=== PATIENT | female | born 1980 | race Caucasian/White ===

== ENCOUNTER 2019-05-01 13:10 | Emergency (ER) | payer SELFPAY ==
[2019-05-01 13:13] VITALS: BP 134/89; PULSE 71; RESP 16; TEMP 36.5; O2SAT 100
--- NOTE | 2019-05-01 13:21 | ED.GENADUL_ITS ---
Discharge Plan Disposition Patient Disposition: HOME Condition: Good Discharge Details Chief Complaint: DentalOral Clinical Impression: Dental infection Primary Care Provider: Peyman Logan ED Provider: Christiane Gibson Home Meds and New Rx's Prescriptions: New amoxicillin-pot clavulanate [Augmentin] 875-125 mg tablet 1 tab PO BID Qty: 13 RF: 0 Continued albuterol sulfate [Proventil HFA] 6.7 GM HFA aerosol inhaler 2 puff Inhalation Q4H PRN PRNQty: 1 RF: 3 loratadine 10 MG tablet 10 mg PO DAILY Qty: 30 RF: 3 Advair HFA 8 GM HFA aerosol inhaler 2 puff Inhalation BID Qty: 1 RF: 3 ibuprofen 200 MG capsule 600 mg PO TID PRNRF: 0 Discharge Instructions Instructions: Dental Abscess (ED) Additional Instructions: Encourage water intake. Tylenol and/or ibuprofen as needed for discomfort. You may use 600 mg of ibuprofen every 6 hours, 1000 mg of Tylenol every 6 hours. Please take the Augmentin as prescribed. Even if symptoms improve, please take the entire course. If you develop swelling, fevers, increased pain or other new/worsening symptoms please seek care urgently once again. Otherwise, please keep your upcoming appointment with dentist. Referrals: Peyman Logan MD [Primary Care Provider] - Discharge Data Discharge Date/Time-TO BE ENTERED AT DEPARTURE: 05/01/19 13:50 Medical Decision Making Patient is a pleasant 38-year-old female presents today with chief complaint of left upper dental pain. She reports that she has had pain in this area for the past 3 days. She has contacted dentist and has appointment in May. She denies any fevers or chills. States that she noted a small bubble near the afflicted tooth. Was able to drain this at home and did have temporary relief of her discomfort. Has not noted a reaccumulation of this. Patient reports that she has had dental infections before and has taken amoxicillin for this. Patient recently had menses, reports that her is status post vasectomy. On exam, patient appears nontoxic. Vital signs within normal limits. No facial swelling, abscess noted. She is quite tender along the buccal side of the fractured #11 tooth. No area of fluctuance to suggest abscess. Patient does have poor dentition. No lingual discomfort. Remaining oropharynx and posterior oropharynx exam is normal. Extraocular movements are intact without any signs of discomfort. No lymphadenopathy palpable. At this point, her procedure at this point I am unable to identify need for drainage t she has responded well to Augmentin and states she is taking this for her dental infections historically. Patient has upcoming appointment with a dentist. Encourage hydration. Encourage good dental care. Advised Tylenol and ibuprofen as needed for discomfort and discussed appropriate dosing. She was given strict return precautions. All of her questions and concerns were addressed and she is in agreement with this plan. HPI General Mode of arrival: ambulatory . Date/Time Provider Initiated Documentation: 05/01/19 13:21 . Limitations to Documentation: no limitations . Information obtained by: patient and RN notes reviewed . History of Present Illness 38 year old F presents to the emergency department with the chief complaint of left upper dental pain, described as moderate, with intensity rated at 5. Quality is described as aching, and is localized to the mouth. Patient reports no radiation. Patient started experiencing this day(s) (3) and it has been constant. Eating improves symptom(s), No exacerbating factors reported . Patient notes no other symptoms.. Patient did receive the following treatments prior to arrival, NSAID Related Data Home Medications Medication Instructions Recorded Confirmed ibuprofen 600 mg PO TID PRN 08/08/16 05/01/19 Advair HFA 2 puff INHALATION BID #1 inhaler 07/16/17 05/01/19 albuterol sulfate [Proventil HFA] 2 puff INHALATION Q4H PRN PRN #1 07/16/17 05/01/19 inhaler loratadine 10 mg PO DAILY #30 tab-cap 07/16/17 05/01/19 amoxicillin-pot clavulanate 1 tab PO BID #13 tab 05/01/19 [Augmentin] Previous Rx's Medication Instructions Recorded Advair HFA 2 puff INHALATION BID #1 inhaler 07/16/17 loratadine 10 mg PO DAILY #30 tab-cap 07/16/17 amoxicillin-pot clavulanate 1 tab PO BID #13 tab 05/01/19 [Augmentin] Allergies Allergy/AdvReac Type Severity Reaction Status Date / Time cefaclor [Cefaclor] Allergy Severe Unverified 05/01/19 13:18 Cephalosporins Allergy Unknown Skin Rash Unverified 05/01/19 13:18 Penicillins Allergy Unknown RASH Unverified 05/01/19 13:18 lactose AdvReac Unknown GI Unverified 05/01/19 13:18 DISTRESS General Stated Complaint: DentalOral ARLET: 4 Review of Systems Constitutional Constitutional: Reports as per HPI, Denies chills, Denies fatigue, Denies fever(s), Denies headache(s) and Denies poor appetite Eyes Eyes: Denies change in vision and Denies irritation ENT Ears, Nose, Mouth, and Throat: Reports as per HPI, Reports dental pain, Denies dysphagia, Denies dizziness, Denies dry mouth, Denies ear discharge, Denies otalgia, Reports facial pain, Denies headache(s), Denies hoarseness, Denies lip swelling, Denies nasal congestion, Denies odynophagia and Denies sore throat Cardiovascular Cardiovascular: Reports as per HPI and Denies chest pain Respiratory Respiratory: Reports as per HPI and Denies cough Gastrointestinal Gastrointestinal: Reports as per HPI, Denies dysphagia, Denies nausea, Denies odynophagia and Denies vomiting Integumentary/Breasts Skin/Breast: Reports as per HPI, Denies erythema, Denies rash and Denies skin pain Neurologic Neurologic: Reports as per HPI, Denies dizziness and Denies headache(s) Endocrine Endocrine: Denies fatigue Allergic/Immunologic Allergic/Immunologic: Denies lip swelling PFSH Family History Mother Hyperlipidemia Father No problems noted. Brother Alcohol abuse Grandfather Neoplasm LIVER Grandfather No problems noted. Grandmother Alcohol abuse Grandmother No problems noted. Son No problems noted. Daughter Asthma Daughter Asthma Social History Smoking/Tobacco Use Status: Former Tobacco Use Alcohol Intake: never Drug use: Never Do you feel safe at home: Yes Do you feel safe in your relationship?: Yes Exam Const General: cooperative, healthy appearing, comfortable, no acute distress, well developed and well groomed Nutritional Appearance: average body habitus and well nourished Orientation: alert and awake [facility] Head: normal to inspection, normocephalic and atraumatic Ears: hearing grossly normal bilaterally, external ears normal and TM's normal bilaterally General nose exam: external nose normal and nares normal Face and sinus: normal facial exam, sinuses nontender and face symmetric Mouth: lip normal, tongue normal, oropharynx normal, moist mucous membranes, no trismus and No restricted motion Teeth and gingiva: abnormal dentition (poor dentition, decaying #11 tooth at area of discomfort), abnormal gingiva (swelling, erythema and tenderness along buccal side of affected tooth) and poor dentition Throat: posterior oropharynx normal, tonsils normal and uvula midline Eyes General: appearance normal, both eyes and all related structures Neck Neck: normal visual inspection, full ROM, no lymphadenopathy, supple and no anterior neck swelling Resp Effort & Inspection: normal respiratory effort, able to speak in complete sentences and no respiratory distress Auscultation: clear to auscultation bilaterally, no rales, no rhonchi and no wheezes Cardio Rate: regular rate Rhythm: regular rhythm Heart Sounds: S1 normal and S2 normal Skin General skin exam: no rashes or lesions noted Trauma: no lacerations or abrasions Neuro General: alert and awake Cognition: normal cognition Speech: speech normal Gait: normal gait Psych Appearance: grossly normal and well kempt Mental Status: mental status grossly normal Speech and Movement: speech and movement normal Course Vital Signs Vital signs: Vital Signs Temperature 36.5 C 05/01/19 13:13 Pulse 71 05/01/19 13:13 Respiratory Rate 16 05/01/19 13:13 Blood Pressure 134/89 05/01/19 13:13 Pulse Oximetry 100 05/01/19 13:13 Temperature 36.5 C 05/01/19 13:13 Temperature Source Temporal Artery Scan 05/01/19 13:13 Pulse 71 05/01/19 13:13 Respiratory Rate 16 05/01/19 13:13 Respiratory Effort Non-Labored 05/01/19 13:17 Blood Pressure 134/89 05/01/19 13:13 Blood Pressure Position Sitting 05/01/19 13:13 Pulse Oximetry 100 05/01/19 13:13 Oxygen Delivery Method Room Air 05/01/19 13:13 Oxygen Flow Rate 0 05/01/19 13:13 Pain Level 6 05/01/19 13:20
[2019-05-01] MEDS: Amoxicillin 875/Clav. 125 TAB PO (13:40)
== END 2019-05-01 13:50 | disposition home or self-care (01) ==
LOC: ER 14:11
PROVIDERS: Emergency Provider Physician Assistant; PCP Family Medicine
DX: K04.7 Periapical abscess without sinus (principal)
CPT/HCPCS: 99283

== ENCOUNTER 2019-05-21 14:50 | Emergency (ER) | payer SELFPAY ==
[2019-05-21 14:54] VITALS: BP 122/78; PULSE 111; RESP 18; TEMP 36.4; O2SAT 100
--- NOTE | 2019-05-21 15:02 | ED.GENADUL_ITS ---
Discharge Plan Disposition Patient Disposition: HOME Condition: Stable Discharge Details Chief Complaint: GenMedical Clinical Impression: Diarrhea, Viral syndrome, Hypokalemia, Right ear pain Primary Care Provider: Peyman Logan ED Provider: Darlene Wilson Home Meds and New Rx's Prescriptions: Continued albuterol sulfate [Proventil HFA] 6.7 GM HFA aerosol inhaler 2 puff Inhalation Q4H PRN PRNQty: 1 RF: 3 loratadine 10 MG tablet 10 mg PO DAILY Qty: 30 RF: 3 Advair HFA 8 GM HFA aerosol inhaler 2 puff Inhalation BID Qty: 1 RF: 3 ibuprofen 200 MG capsule 600 mg PO TID PRNRF: 0 Discharge Instructions Instructions: Hypokalemia (ED), Acute Diarrhea (ED), Earache (ED), Viral Syndrome (ED) Additional Instructions: Drink plenty of fluids and get plenty of rest. Alternate tylenol and motrin as needed and directed for pain. You can supplement potassium in your diet with foods such as bananas, spinach, tomatoes, garlic, kale, etc. You can also follow a bland diet for your diarrhea with bananas, rice, applesauce, toast. Your ear pain could likely be due to your excessive earwax in the setting of a viral infection. You can try [id number] hydrogen peroxide drops to soften the earwax to help with removal. If your ear pain persists or worsens, you can follow-up with your primary care doctor return to the emergency department for further evaluation. Follow-up with your primary care doctor in 1 week for reevaluation. Return to the emergency department anytime if he develop any significant worsening or new concerning symptoms. Discharge Data Discharge Date/Time-TO BE ENTERED AT DEPARTURE: 05/21/19 17:54 Discharge Physician: Darlene Wilson Medical Decision Making 1515 -- 39-year-old female presents with fatigue, headache, right ear pain, low back pain and leg cramps for the past few days. She also admits to multiple episodes of watery brown diarrhea daily for the past 2 weeks. She states she recently finished a prescription for Augmentin for a dental infection and 2 days into the antibiotic she developed mouth ulcers which resolved after 6 days. She states on last day of her antibiotic she developed watery brown diarrhea which has been continual since then. She denies any known fever but does admit to chills. She denies any sore throat, cough, chest pain, shortness of breath, abdominal pain or urinary symptoms. Right TM obscured by cerumen. Left TM normal to inspection. Normal oropharynx. Lungs clear. Abdomen soft and nontender. No CVA tenderness. No focal deficits. Moving all extremities. Discussed with patient that her mouth ulcers which have since resolved could have been due to yeast or thrush infection due to antibiotics. Discussed that diarrhea likely can be expected with antibiotics. Will place an IV, bolus IV fluids, screening labs, urinalysis, urine , Toradol to assess electrolytes. 1730 --labs reviewed. Potassium 3.2. Patient given oral potassium. Urinalysis negative for infection. Urine test negative. Patient feels much better and is requesting to go home. Do not suspect acute bacterial diarrheal illness as she denies any known fever, with normal white blood cell count and no report of bloody diarrhea. Patient declined irrigation of her ear stating she was nervous about this. Discussed that her right ear pain could be due to pressure from cerumen, an underlying viral process, or a bacterial ear infection. Through shared decision-making process, patient states she would rather hold on antibiotics for a possible ear infection at this time as she has had these adverse reactions with her recent antibiotics. She was advised to supplement potassium in her diet. She was advised to follow- up with her primary care doctor for evaluation within the next week and to return here with any concerns. Medical Records Medical records reviewed: Yes I reviewed the patient's medical records. Lab Data Lab results reviewed: Yes I reviewed the patient's lab results. Labs: Laboratory Tests Range/Units 05/21/19 05/21/19 05/21/19 15:40 15:40 16:23 WBC (4.4-10.8) k/cumm 6.13 RBC (4.00-5.20) m/cumm 4.80 Hgb (12.0-15.5) g/dL 13.4 Hct (36.0-46.0) % 39.6 MCV (80-95) fL 82.5 MCH (27.0-33.0) pg 27.9 MCHC (32.0-36.0) g/dL 33.8 RDW (11.7-14.6) % 13.5 Plt Count (130-400) x1000/uL 368 MPV (8.0-11.0) fL 9.4 Immature Gran % % 0.0 Neutrophils % 69.5 Lymphocytes % 19.6 Monocytes % 9.3 Eosinophils % 1.1 Basophils % 0.5 Absolute Neutrophils (1.2-6.7) k/cumm 4.26 Absolute Lymphocytes (1.2-3.4) k/cumm 1.20 Absolute Monocytes (0.11-0.7) k/cumm 0.57 Absolute Eosinophils (0.0-0.7) k/cumm 0.07 Absolute Basophils (0.0-0.2) k/cumm 0.03 Sodium (136-145) mmol/L 140 Potassium (3.5-5.1) mmol/L 3.2 L Chloride (98-107) mmol/L 103 Carbon Dioxide (21.0-32.0) mmol/L 26.5 Anion Gap (3-11) mmol/L 10.5 BUN (7-18) mg/dL 7 Creatinine (0.55-1.02) mg/dL 0.67 Estimated GFR/1.73 m2 (mL/min/1.73m2) >= 60.00 Glucose (74-106) mg/dL 94 Calcium (8.5-10.1) mg/dL 8.1 L Total Bilirubin (0.2-1.0) mg/dL 0.5 AST (15-37) U/L 18 ALT (14-59) U/L 16 Alkaline Phosphatase (46-116) U/L 58 Total Protein (6.4-8.2) g/dL 7.5 Albumin (3.4-5.0) g/dL 3.5 Urine Color (Yellow) Yellow Urine Clarity (Clear) Clear Urine pH (5-8) 7.0 Ur Specific [place] (1.005-1.025) 1.015 Urine Protein (Negative) mg/dL Negative Urine Ketones (Negative) mg/dL Negative Urine Blood (Negative) Trace-lysed H Urine Nitrite (Negative) Negative Urine Bilirubin (Negative) Negative Urine Urobilinogen (Up TO 0.2) EU/dL 0.2 Ur Leukocyte Esterase (Negative) Negative Urine RBC (0-2) HPF 0-2 Urine WBC (0-5) HPF 0-2 Ur Epithelial Cells (Negative) HPF Many Urine Crystals (Negative) HPF Negative Urine Bacteria (Negative) HPF Negative Urine Mucus (Negative) Negative Ur Culture Indicated? No Urine Glucose (Negative) mg/dL Negative HPI General Mode of arrival: ambulatory . Date/Time Provider Initiated Documentation: 05/21/19 14:52 . Limitations to Documentation: no limitations . Information obtained by: patient . History of Present Illness 39 year old F presents to the emergency department with the chief complaint of headache, fatigue, low back pain, chills, R ear pain today; diarrhea x wks, Patient started experiencing this day(s) and it has been constant. No relieving factors improve symptom(s), No exacerbating factors reported . Patient notes fever/chills, headaches and malaise; denies cough, diaphoresis, loss of appetite, nausea/vomiting, rash, seizure, shortness of breath, syncope and weakness. Patient did receive the following treatments prior to arrival, none Related Data Home Medications Medication Instructions Recorded Confirmed ibuprofen 600 mg PO TID PRN 08/08/16 05/21/19 Advair HFA 2 puff INHALATION BID #1 inhaler 07/16/17 05/21/19 albuterol sulfate [Proventil HFA] 2 puff INHALATION Q4H PRN PRN #1 07/16/17 05/21/19 inhaler loratadine 10 mg PO DAILY #30 tab-cap 07/16/17 05/21/19 Previous Rx's Medication Instructions Recorded Advair HFA 2 puff INHALATION BID #1 inhaler 07/16/17 loratadine 10 mg PO DAILY #30 tab-cap 07/16/17 Allergies Allergy/AdvReac Type Severity Reaction Status Date / Time cefaclor [Cefaclor] Allergy Severe Unverified 05/21/19 15:00 Cephalosporins Allergy Unknown Skin Rash Unverified 05/21/19 15:00 Penicillins Allergy Unknown RASH Unverified 05/21/19 15:00 lactose AdvReac Unknown GI Unverified 05/21/19 15:00 DISTRESS General Stated Complaint: GenMedical ARLET: 3 Review of Systems All systems reviewed & are unremarkable except as noted in HPI and below Constitutional Constitutional: Reports as per HPI, Reports chills, Reports fatigue, Denies fever(s) and Reports headache(s) Eyes Eyes: Denies blurry vision ENT Ears, Nose, Mouth, and Throat: Denies dizziness, Reports headache(s), Denies sore throat and Denies throat swelling Cardiovascular Cardiovascular: Denies chest pain and Denies dyspnea Respiratory Respiratory: Denies cough and Denies dyspnea Gastrointestinal Gastrointestinal: Denies abdominal pain, Reports diarrhea and Denies vomiting Genitourinary Genitourinary: Denies hematuria and Denies dysuria Musculoskeletal Musculoskeletal: Denies back pain and Denies numbness Integumentary/Breasts Skin/Breast: Denies lesions and Denies rash Neurologic Neurologic: Denies dizziness, Reports headache(s), Denies focal weakness and Denies numbness Endocrine Endocrine: Reports fatigue Allergic/Immunologic Allergic/Immunologic: Denies throat swelling [facility] Medical History Asthma (Inactive 01/14/12) Surgical History Hx of cholecystectomy (Chronic) Family History Mother Hyperlipidemia Father No problems noted. Brother Alcohol abuse Grandfather Neoplasm LIVER Grandfather No problems noted. Grandmother Alcohol abuse Grandmother No problems noted. Son No problems noted. Daughter Asthma Daughter Asthma Social History Smoking/Tobacco Use Status: Former Tobacco Use Alcohol Intake: never Drug use: Never Substance use type: does not use Do you feel safe at home: Yes Do you feel safe in your relationship?: Yes Exam Const General: cooperative and healthy appearing Orientation: alert and awake [facility] Head: normal to inspection Ears: hearing grossly normal bilaterally, external ears normal and other (L TM normal to inspection; R TM obscured by cerumen) General nose exam: external nose normal Face and sinus: normal facial exam Mouth: oral mucosae normal Teeth and gingiva: dentition normal Throat: posterior oropharynx normal Eyes General: appearance normal, both eyes and all related structures Eyelids: eyelids normal EOM: EOM intact bilaterally Neck Neck: normal visual inspection Lymphatic: no lymphadenopathy noted Chest Chest: normal inspection of the chest Resp Effort & Inspection: normal respiratory effort and able to speak in complete sentences Auscultation: clear to auscultation bilaterally Cardio Rate: regular rate Rhythm: regular rhythm GI Inspection: normal to inspection Palpation: soft, not firm, no guarding, no hepatosplenomegaly, no masses and nontender Auscultation: normal bowel sounds Back/Spine/Pelvis Back: no CVA tenderness Skin General skin exam: no rashes or lesions noted Neuro General: alert and awake Cognition: normal cognition Speech: speech normal Gait: normal gait Motor: muscle tone normal throughout Sensory Exam: no sensory deficits noted Extrem General: normal to inspection, full ROM and normal capillary refill Psych Appearance: grossly normal Mental Status: mental status grossly normal Speech and Movement: speech and movement normal Affect: normal affect Thought Process: normal Course Vital Signs Vital signs: Vital Signs Temperature 97.5 F L 05/21/19 14:54 Pulse 111 H 05/21/19 14:54 Respiratory Rate 18 05/21/19 14:54 Blood Pressure 122/78 05/21/19 14:54 Pulse Oximetry 100 05/21/19 14:54 Temperature 97.5 F L 05/21/19 14:54 Temperature Source Temporal Artery Scan 05/21/19 14:54 Pulse 111 H 05/21/19 14:54 Respiratory Rate 18 05/21/19 14:54 Blood Pressure 122/78 05/21/19 14:54 Blood Pressure Position Sitting 05/21/19 14:54 Pulse Oximetry 100 05/21/19 14:54 Oxygen Delivery Method Room Air 05/21/19 14:54 Oxygen Flow Rate 0 05/21/19 14:54 Pain Level 6 05/21/19 14:54
[2019-05-21] MEDS: Normal Saline 1,000 ML 1000 ML IV ×2 (15:40→16:40)
[2019-05-21] MEDS: Ketorolac 30 MG/ML VIAL IVP (15:46)
[2019-05-21 15:54] LABS: Absolute Basophil Count 0.03 k/cumm (0.0-0.2); Absolute Eosinophil Count 0.07 k/cumm (0.0-0.7); Absolute Monocyte Count 0.57 k/cumm (0.11-0.7); Absolute Neutrophil Count 4.26 k/cumm (1.2-6.7); Basophils % 0.5; Eosinophils % 1.1; HCT 39.6 % (36.0-46.0); HGB 13.4 g/dL (12.0-15.5); Lymphocytes % 19.6; Mean Corp. HGB Concentration 33.8 g/dL (32.0-36.0); Mean Corpuscular Hemoglobin 27.9 pg (27.0-33.0); Mean Corpuscular Volume 82.5 fL (80-95); Mean Platelet Volume 9.4 fL (8.0-11.0); Monocytes % 9.3; Neutrophils % 69.5; Platelet Count 368 x1000/uL (130-400); RBC Distribution Width 13.5 % (11.7-14.6); White Blood Cell Count 6.13 k/cumm (4.4-10.8)
[2019-05-21 16:04] LABS: ALT 16 U/L (14-59); AST 18 U/L (15-37); Albumin 3.5 g/dL (3.4-5.0); Alkaline Phosphatase 58 U/L (46-116); Anion Gap 10.5 mmol/L (3-11); BUN 7 mg/dL (7-18); Bilirubin, Total 0.5 mg/dL (0.2-1.0); CO2 26.5 mmol/L (21.0-32.0); CREATININE 0.67 mg/dL (0.55-1.02); Calcium 8.1 mg/dL (8.5-10.1); Chloride 103 mmol/L (98-107); Glucose 94 mg/dL (74-106); Potassium 3.2 mmol/L (3.5-5.1); Sodium 140 mmol/L (136-145); Total Protein 7.5 g/dL (6.4-8.2)
[2019-05-21 16:32] LABS: Bilirubin Negative (Negative); Blood Trace-lysed (Negative); Clarity Clear (Clear); Glucose Negative (Negative); Ketones Negative (Negative); Leukocyte Esterase Negative (Negative); Nitrite Negative (Negative); Specific Gravity 1.015 (1.005-1.025); Urobilinogen 0.2 EU/dL (Up TO 0.2)
[2019-05-21] MEDS: Potassium Chloride 20 MEQ TABCR 40 MEQ PO (16:33)
[2019-05-21 16:41] LABS: Bacteria Negative HPF (Negative); C & S Indicated? No; Crystals Negative HPF (Negative); Epithelial Cells Many HPF (Negative); Mucus Negative (Negative); RBC 0-2 HPF (0-2); WBC 0-2 HPF (0-5)
== END 2019-05-21 17:54 | disposition home or self-care (01) ==
PROVIDERS: Emergency Provider Physician Assistant; PCP Family Medicine
DX: R53.83 Other fatigue (principal); R51 Headache; H92.01 Otalgia, right ear; M54.5 Low back pain; B34.9 Viral infection, unspecified; G47.62 Sleep related leg cramps; E87.6 Hypokalemia; R19.7 Diarrhea, unspecified; T36.0X5A Adverse effect of penicillins, initial encounter
CPT/HCPCS: 36415; 80053; 81025; 96361; 96374; 99284; 81003; 81015; 85025; J1885

== ENCOUNTER 2022-09-30 01:04 | Outpatient (CLI) | payer MEDICAID, SELFPAY ==
--- NOTE | 2022-09-30 07:00 | DI.RAD_ITS ---
Exam(s) XR FOOT RT COMPLETE EXAM: XR FOOT RT COMPLETE CLINICAL HISTORY: ? hallux valgus,rt foot pain,m79.671. TECHNIQUE: 2D digital imaging was performed. COMPARISON: CR RIGHT GREAT TOE from 09/23/2009 FINDINGS: 3 views No evidence of fracture or diastasis of the Lisfranc joint. Hallux valgus noted, similar to the oppo site side. Metatarsophalangeal joint of the great toe appears unremarkable without degenerative narr owing nor erosions. No other osseous findings in the foot with exception of a moderate size inferior calcaneal spur. IMPRESSION: Hallux valgus. DATA REPOSITORY: RADIATION DOSE DELIVERED:
--- NOTE | 2022-09-30 07:00 | DI.RAD_ITS ---
Exam(s) XR FOOT LT COMPLETE EXAM: XR FOOT LT COMPLETE CLINICAL HISTORY: ? HALLUX VALGUS,lt foot pain, [id number]. TECHNIQUE: 2D digital imaging was performed. COMPARISON: CR XR FOOT RT COMPLETE from 09/30/2022 FINDINGS: 3 views No evidence fracture nor diastasis of the Lisfranc joint. Hallux valgus noted, similar to the opposi te side. There are no obvious degenerative changes in the great toe metatarsophalangeal joint. No o ther osseous findings. Bone density age-appropriate. Tiny inferior calcaneal spur noted. IMPRESSION: Hallux valgus, similar to the opposite side. DATA REPOSITORY: RADIATION DOSE DELIVERED:
== END 2022-09-30 01:24 ==
LOC: DI 01:06
PROVIDERS: Visit Provider Podiatrist
DX: M20.11 Hallux valgus (acquired), right foot (principal); M20.12 Hallux valgus (acquired), left foot; M79.672 Pain in left foot; M79.671 Pain in right foot
CPT/HCPCS: 73630

== ENCOUNTER 2022-12-28 18:01 | Emergency (ER) | payer MEDICAID, SELFPAY ==
[2022-12-28 18:07] VITALS: BP 174/104; PULSE 100; RESP 20; TEMP 36.8; O2SAT 100
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
[2022-12-28] MEDS: Ketorolac 10 MG TAB PO (18:21)
[2022-12-28] MEDS: Clindamycin 150 MG CAP 450 MG PO (18:21)
== END 2022-12-28 18:58 | disposition home or self-care (01) ==
PROVIDERS: Emergency Provider Nurse Practitioner Family; PCP Nurse Practitioner Gerontology
DX: K04.7 Periapical abscess without sinus (principal)
CPT/HCPCS: 99283; 99284